=== PATIENT | male | born 1975 | race Two or more races ===

== ENCOUNTER 2024-01-12 18:12 | Emergency (ER) | payer OTHER, SELFPAY ==
[2024-01-12 18:26] VITALS: BP 140/102
[2024-01-12 18:47] LABS: % Basophils 0.6 % (0-2); % Eosinophils 1.5 % (0-6); % Immature Granulocytes 0.3 % (0-0.5); % Lymphocytes 29.2 % (20.5-51.1); % Monocytes 5.7 % (1.7-9.3); % Neutrophils 62.7 % (42.2-75.2); Absolute Basophils 0.1 10^3/uL (0-0.2); Absolute Eosinophils 0.2 10^3/uL (0-0.7); Absolute Lymphocytes 3.2 10^3/uL (1.2-3.4); Absolute Monocytes 0.6 10^3/uL (0.1-0.6); Absolute Neutrophils 6.9 10^3/uL (1.4-6.5); Hematocrit 46.5 % (39.0-52.0); Hemoglobin 15.9 g/dL (13.0-18.0); Mean Corp Hgb Conc. 34.2 g/dL (33.0-37.0); Mean Corpuscular Hgb 28.4 pg (27.0-31.0); Mean Corpuscular Volume 83.2 fL (80.0-94.0); Mean Platelet Volume 9.7 fL (7.4-10.4); Nucleated Red Blood Cells % 0 % (-); Platelet Count 370 10^3/uL (130-400); Red Blood Cell Count 5.59 10^6/uL (4.70-6.10); Red Cell Dist. Width 13.6 % (11.5-14.5); White Blood Cell Count 10.9 10^3/uL (4.8-10.8)
[2024-01-12 18:57] LABS: ALT (SGPT) 24 U/L (0-50); AST (SGOT) 26 U/L (17-59); Albumin 4.6 g/dl (3.5-5.0); Alkaline Phosphatase 34 U/L (38-126); Blood Urea Nitrogen 14 mg/dl (9-20); Carbon Dioxide 21 mmol/L (22-30); Chloride 108 mmol/L (98-107); Glucose 126 mg/dl (70-99); Potassium 3.6 mmol/L (3.5-5.1); Sodium 141 mmol/L (135-145); Total Bilirubin 0.4 mg/dl (0.2-1.3); Total Protein 6.9 g/dl (6.3-8.2); eGFR > 60.00
[2024-01-12 19:09] LABS: Troponin I < 0.012 ng/ml
[2024-01-12 20:53] VITALS: BP 140/93
--- NOTE | 2024-01-12 21:28 | ED.GENMED ---
History of Present Illness
General
Chief Complaint: Headache
Time Seen by Provider: 01/12/24 21:01
History of Present Illness
History of Present Illness:
48-year-old male with history of hyperlipidemia and daily tobacco use presents to the emergency department for evaluation of intermittent bouts of chest pain ongoing for the past several weeks. The episodes last 1 minute or less and typically are
random in nature, he can get in at rest or with exertion. He can exert himself without significant distress for the majority of the time. Pain is a 'crushing pain' across the entire chest. Has no pain at present. No fevers or night sweats. No
coughing or shortness of breath. Denies any leg swelling. No known history of coronary disease. He also notes persistently elevated blood pressures between 140/90 and 160/110 over the past 2 weeks on a home cuff.
Review of Systems
Review of Systems
Allergies reviewed?: Yes
All Other Systems: ROS reviewed and negative except as documented in HPI and ROS
Phy Exam
Physical Exam
Physical Exam:
GEN: Well appearing, NAD, WDWN
HEENT: Oral mucosa moist, no scleral icterus
Cardiac: Regular rate and rhythm, no murmurs
Lung: No respiratory distress, no tachypnea, lungs clear to auscultation bilaterally
MSK: No gross deformity or injuries
Skin: Good color, no pallor or jaundice, no rashes
Neuro: AO x3, moves all extremities freely
Psych: Calm, cooperative
Course
Orders/Labs/Results
Orders:
Orders
01/12/24 18:26
EKG [Electrocardiogram (*1)] Urgent
Reason for Study: Chest Pain
EKG- Treatment ONCE
01/12/24 18:28
Electrocardiogram (*1) Urgent
Reason for Study: Chest Pain
EKG- Treatment ONCE
01/12/24 18:37
Complete Blood Count/With Diff Urgent
Comprehensive Metabolic Panel Urgent
Troponin I Urgent
Abnormal Lab Results
01/12/24
18:37
WBC 10.9 H 10^3/uL
(4.8-10.8)
Absolute Neuts (auto) 6.9 H 10^3/uL
(1.4-6.5)
Chloride 108 H mmol/L
(98-107)
Carbon Dioxide 21 L mmol/L
(22-30)
Glucose 126 H mg/dl
(70-99)
Alkaline Phosphatase 34 L U/L
(38-126)
01/12/24 18:37
01/12/24 18:37
Vital Signs
Initial and Last Documented VS:
Initial Vital Signs
Temp Pulse Resp BP Pulse Ox
98.8 F 106 18 140/102 98
01/12/24 18:26 01/12/24 18:26 01/12/24 18:26 01/12/24 18:26 01/12/24 18:26
Last Documented Vital Signs
Temp Pulse Resp BP Pulse Ox
98.8 F 90 18 140/93 99
01/12/24 18:26 01/12/24 20:53 01/12/24 20:53 01/12/24 20:53 01/12/24 20:53
MDM/Problems Addressed
MDM/Problems Addressed:
Patient's symptoms do not sound classic for cardiac angina however he does have multiple risk factors including hyperlipidemia and tobacco abuse, he also notes persistently elevated blood pressure for the past 2 weeks. Will refer him to cardiology
through the chest pain hotline and start low-dose antihypertensive for risk reduction.
Comment
Comment:
EKG independently interpreted by me shows normal sinus rhythm at a rate of [address] changes concerning for ischemia, patient motion artifact in lead V1 limits interpretation
*Critical Care Note
Total Time (30-74mins, 75-104mins- exclusive of procedures): Not Applicable
ED Attending Note
-
Portions of this chart may have been created with voice recognition software.� Occasional wrong word or��sound alike� substitutions may have occurred due to the inherent limitations of voice recognition software.
Discharge Plan
Departure
Patient Disposition: Home (Routine Discharge)
Date of Disposition: 01/12/24
Time of Disposition: 21:30
Patient with high blood pressure during this ER visit?: Yes
Discharge Problem:
Atypical chest pain
Instructions: Chest Pain CBC Follow Up
Prescriptions:
New
amlodipine 5 mg tablet
5 mg PO DAILY Qty: 30 0RF
Referrals:
Rogelio Rivera MD [Family Provider] -
Interventions
Interventions:
*Risk Screen - Suicide Last Done: 01/12/24 18:26
*General Assessment Last Done: 01/12/24 18:26
*Neglect/Abuse Screening Last Done: 01/12/24 18:26
ED- Fall Risk Assessment Last Done: 01/12/24 20:53
*ED COVID-19 Vaccine History Last Done: 01/12/24 18:26
*Nursing Disposition Last Done: 01/12/24 21:39
ED- Neurological Assessment Last Done: 01/12/24 20:23
Discharge Date and Time
Discharge Date/Time: 01/12/24 21:40
Print Language: SLOVAK
== END 2024-01-12 21:40 | disposition home or self-care (01) ==
LOC: EMR 18:12
PROVIDERS: Emergency Medicine; EMERGENCY PHYSICIAN Emergency Medicine; FAMILY PHYSICIAN Family Medicine
DX: R07.89 Other chest pain (principal); R03.0 Elevated blood-pressure reading, without diagnosis of hypertension; E78.5 Hyperlipidemia, unspecified; Z72.0 Tobacco use
CPT/HCPCS: 99283; 80053; 84484; 85025; 93005

== ENCOUNTER → 2024-01-26 11:46 | Outpatient (REF) | payer OTHER, SELFPAY | LOC: DHCBC/DCA 11:46 | PROVIDERS: ATTENDING PHYSICIAN Internal Medicine Cardiovascular Disease; FAMILY PHYSICIAN Family Medicine | DX: R07.2 Precordial pain (principal) | CPT/HCPCS: 78452; 93017; A9500 ==

== ENCOUNTER → 2024-01-29 07:10 | Outpatient (REF) | payer OTHER, SELFPAY | LOC: HWRCS 07:10 | PROVIDERS: ATTENDING PHYSICIAN Internal Medicine Cardiovascular Disease; FAMILY PHYSICIAN Family Medicine | DX: R07.2 Precordial pain (principal); I10 Essential (primary) hypertension | CPT/HCPCS: 93306 ==